=== PATIENT | female | born 1930 | race African-American/Black ===

== ENCOUNTER 2016-08-10 06:19 | Emergency (ER) | payer OTHER ==
[~2016-08-10] VITALS: Ht 170.2 cm; Wt 77.1 kg
--- NOTE | ~2016-08-10 | EKG ---
[address] [address] ELECTROCARDIOGRAM REPORT Name: JLUIS MURGUIAALECIA Rowe [facility] [id number] Admission: 08/10/16 Attend Phys: Discharge: 08/10/16 Date of : [birth year] Report #: [id number] THIS REPORT FOR: //name// [facility] ED Test Date: 2016-08-10 Test Time: 07:23:19 Pat Name: ANJU MURGUIA Department: Room: [facility] Gender: F Front Desk Supervisor: Micaela Alex : 1930 Requested By: Fahad Holly Order Number: [id number] MD: Db Martinez Measurements Intervals [place] Rate: 79 P: 66 HI: 196 QRS: 59 QRSD: 93 T: 30 QT: 382 QTc: 438 Interpretive Statements Sinus rhythm No previous ECG available for comparison Electronically Signed On 08-10-2016 20:23:56 CDT by Db Martinez [email or web address] <ELECTRONICALLY SIGNED> By: Db Martinez MD 08/10/162022 0723 0723 Db Martinez MD /ANEUDY
[2016-08-10 06:21] VITALS: BP 148/74
[2016-08-10 06:41] LABS: POC CA IONIZED 4.6 mg/dL (4.5-5.3); POC CREATININE 0.8 mg/dL (0.6-1.3); POC HEMOGLOBIN 11.6 g/dL (12.0-15.0); POC POTASSIUM 3.6 mmol/L (3.5-5.1)
[2016-08-10 06:45] LABS: ABSOLUTE NEUTROPHILS 3.8 thou/uL (1.4-8.2); BASOPHILS 0.3 % (0.0-2.0); EOSINOPHILS 12.1 % (0.0-3.0); HEMATOCRIT 33.7 % (37.0-47.0); HEMOGLOBIN 10.6 gm/dL (12.0-15.0); LYMPHOCYTES 31.1 % (24.0-44.0); MCH 24.2 pg (26.0-34.0); MCHC 31.3 g/dL (28.0-37.0); MCV 77.1 fL (80.0-100.0); MONOCYTES 8.9 % (1.0-8.0); PLATELET COUNT 224 thou/uL (150-400); POLYS 47.6 % (36.0-66.0); RBC 4.37 mil/uL (4.20-5.00); RDW 17.1 % (10.5-14.5); WBC 7.9 thou/uL (4.0-11.0)
[2016-08-10 06:59] LABS: MANUAL DIFF NO
[2016-08-10 07:02] LABS: ANION GAP 8 mmol/L (7-16); BUN 8 mg/dL (7-18); CALCIUM 8.7 mg/dL (8.5-10.1); CHLORIDE 105 mmol/L (98-107); CO2 29 mmol/L (21-32); CREATININE 0.9 mg/dL (0.6-1.0); GLUCOSE 104 mg/dL (74-106); POTASSIUM 3.7 mmol/L (3.5-5.1); SODIUM 142 mmol/L (136-145)
[2016-08-10 07:04] LABS: APTT 29.2 Seconds (24.5-32.8); INR 1.1; PROTIME 10.9 Seconds (9.3-11.4)
[2016-08-10 07:15] LABS: NT-PRO BRAIN NAT PEPTIDE 441 pg/mL (<300); TROPONIN-I < 0.04 ng/mL (<0.04-0.07)
[2016-08-10] MEDS ORDERED: PROBIOTIC1 EAC1 PO (07:29)
[2016-08-10] MEDS ORDERED: LEVAQUIN 500 M500 M4 PO (07:30)
[2016-08-10] MEDS ORDERED: KEPPRA 500 MG500 M1 PO (07:31)
[2016-08-10] MEDS ORDERED: LEVOTHYROXINE 0.1 MG PO (07:31)
[2016-08-10] MEDS ORDERED: TOPROL XL25 MG PO (07:32)
[2016-08-10] MEDS ORDERED: ZANTAC 150MG T150 MG PO (07:33)
[2016-08-10] MEDS ORDERED: SEROQUEL 25 MG25 M1 PO (07:34)
[2016-08-10 07:52] LABS: URINE BILIRUBIN NEGATIVE (Negative); URINE BLOOD TRACE (Negative); URINE COLOR YELLOW; URINE GLUCOSE-RANDOM* NEGATIVE (Negative); URINE KETONES NEGATIVE (Negative); URINE NITRITE NEGATIVE (Negative); URINE PROTEIN (DIPSTICK) NEGATIVE (Negative); URINE UROBILINOGEN 0.2 E.U./dl (0.2-1.0)
[2016-08-10 12:05] VITALS: BP 143/78
== END 2016-08-10 12:06 ==
LOC: ER 06:19 → EROBS 08:59 → ER 12:06
PROVIDERS: Emergency Medicine
DX: J18.9 Pneumonia, unspecified organism (principal); Z88.5 Allergy status to narcotic agent; Z88.6 Allergy status to analgesic agent; Z88.8 Allergy status to other drugs, medicaments and biological substances; Z88.0 Allergy status to penicillin

== ENCOUNTER 2016-10-21 21:44 | Inpatient (IN) | payer OTHER ==
[~2016-10-21] VITALS: Ht 165.1 cm; Wt 65.6 kg
--- NOTE | ~2016-10-21 | H ---
[facility] [place] [address] HISTORY AND PHYSICAL Name: ANJU MURGUIA Room #: 200-I ADM IN .R.#: [id number] Admission: 10/21/16 Attend Phys: Feliciano Blankenship MD Discharge: Date of : [birth year] Report #: [id number] THIS REPORT FOR: //name// CC: Feliciano Blankenship DATE OF SERVICE: 10/22/2016 CHIEF COMPLAINT: Fever and altered mental status. HISTORY OF PRESENT ILLNESS: The patient is an 86-year-old female who resides at [facility]. She has had multiple episodes of pneumonia or upper respiratory infection in the past several months. For the past several days, she has reportedly had decreased responsiveness. On the day of admission, she was found to have fever and altered mental status. She was brought to [facility] Emergency Room for evaluation where she was found to have tachycardia and findings of left lower lobe infiltrate on her chest x-ray. She was admitted with working diagnosis of pneumonia. 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 ALLERGIES: MORPHINE, MERREM, PENICILLIN, PREDNISONE, CYMBALTA, MOTRIN. MEDICATIONS: Seroquel 25 mg at bedtime, aspirin 81 mg daily, Toprol-XL 25 mg daily, levothyroxine 150 mg daily, ranitidine 150 mg at bedtime, Keppra 250 mg b.i.d., gabapentin 300 mg t.i.d., Colace 100 mg q. 6 hours p.r.n., ferrous sulfate 325 mg daily, baclofen 10 mg t.i.d. and oxycodone 10 mg q. 6 hours. FAMILY HISTORY: Noncontributory. SOCIAL HISTORY: She is and lives at [facility]. She does not use tobacco or alcohol. REVIEW OF SYSTEMS: GENERAL: The patient has chronic back pain, but otherwise has no specific complaints. HEENT: Negative. PULMONARY: She has occasional cough, but denies shortness of breath. CARDIOVASCULAR: Denies chest pain or edema. GENITOURINARY: Negative. MUSCULOSKELETAL: Wheelchair bound, able to transfer, but has chronic back pain with neuropathy. LYMPHATICS: Negative. NEUROLOGIC: Forgetful, but otherwise denies any localized weakness. [address] [address] HISTORY AND PHYSICAL Name: ANJU MURGUIA Room #: 200-I [facility] IN [facility]#: [id number] Admission: 10/21/16 Attend Phys: Feliciano Blankenship MD Discharge: Date of : [birth year] Report #: [id number] PHYSICAL EXAMINATION: GENERAL: The patient is a pleasant, cooperative female complaining that she is hungry, but in no apparent distress. VITAL SIGNS: Reveal temperature 37.4, pulse of 107, respiratory rate 16, blood pressure 165/80. HEENT: Head is normocephalic, atraumatic. Pupils are equal and reactive. Extraocular muscles intact. Oropharynx is moist. NECK: Supple. Trachea midline. LUNGS: Have crackles in the left base. CARDIOVASCULAR: Tachycardic, but regular in rhythm. ABDOMEN: Soft, nontender, nondistended with normoactive bowel sounds. SKIN: Warm and dry. Turgor adequate. LYMPHATICS: No cervical or axillary lymphadenopathy. NEUROLOGIC: She is awake, alert, oriented to self and year, without any focal neurologic deficit or lateralizing signs. MUSCULOSKELETAL: Reveals diminished, but equal and symmetric strength in all extremities. LABORATORY DATA: Include BUN is 17, creatinine 1.1, magnesium 1.6, albumin 2.0. WBC is 15.8, hemoglobin is 11.6, hematocrit is 36.5. Differential includes polys 66%, lymphocytes 21%, monocytes 10%. Urinalysis shows pH of 7, protein 1, blood 3+, leukocyte 1+. Chest x-ray shows left lower lobe pneumonia with possible small effusion. ASSESSMENT: 1. Sepsis with fever, altered mental status and tachycardia due to pneumonia. 2. Severe protein-calorie malnutrition. 3. Hypothyroidism. 4. Chronic back pain due to lumbar spondylosis with radiculopathy. 5. Metabolic encephalopathy due to acute illness. 6. Hypothyroidism. PLAN: Admission to CCU. Continue vancomycin and Levaquin. We will ask speech therapy to evaluate given repeated bouts of respiratory infections in the past several months. Continue nebulized treatments. We will initiate DVT prophylaxis. We will continue home medications. <ELECTRONICALLY SIGNED> By: Feliciano Blankenship MD 10/23/16 1014 1126 1155 Feliciano Blankenship MD /nt
--- NOTE | ~2016-10-21 | EKG ---
[address] [place] [address] ELECTROCARDIOGRAM REPORT Name: ANJU MURGUIA Jae Room #: 200-I ADM IN M.R.#: [id number] Admission: 10/21/16 Attend Phys: Feliciano Blankenship MD Discharge: Date of : [birth year] Report #: [id number] THIS REPORT FOR: //name// [facility] ED Test Date: 2016-10-21 Test Time: 21:53:43 Pat Name: ANJU MURGUIA Department: Room: 200 Gender: F Sky [place]: KYLIE : 1930 Requested By: Wilfredo Simms Order Number: [id number] MD: Masood Williamson Measurements Intervals [place] Rate: 124 P: 55 IA: 154 QRS: 64 QRSD: 90 T: 21 QT: 318 QTc: 457 Interpretive Statements Sinus tachycardia Multiple ventricular premature complexes Compared to ECG 08/10/2016 07:23:19 Ventricular premature complex(es) now present Electronically Signed On 10-22-2016 7:59:44 CDT by Masood Williamson [email or web address] <ELECTRONICALLY SIGNED> By: Masood Williamson MD, [facility] 10/22/16 0759 52 52 Masood Williamson MD, [facility] /EPI
--- NOTE | ~2016-10-21 | HC ---
[facility] [place] [address] CONSULTATION Name: ANJU MURGUIA Room #: 216-P [facility] IN M.R.#: [id number] Admission: 10/21/16 Attend Phys: Feliciano Blankenship MD Discharge: Date of : [birth year] Report #: [id number] THIS REPORT FOR: //name// CC: Feliciano Blankenship DATE OF SERVICE: 10/23/2016 REASON FOR FOLLOWUP: Left lower lobe pneumonia. SUBJECTIVE: Today, the patient is resting comfortably. Appears to be more alert. Denies any significant pain, nausea, vomiting or changes in bowel or bladder habits. PHYSICAL EXAMINATION: VITAL SIGNS: She is afebrile. Stable. HEENT: Pupils equal, round, reactive to light and accommodation. Extraocular muscles intact. NECK: Supple. There is no LAD, no JVD. HEART: She is tachycardic. LUNGS: Crackles at her left base. ABDOMEN: Obese, soft, nontender, nondistended. EXTREMITIES: Demonstrate no cyanosis, clubbing or edema. ASSESSMENT AND PLAN: Left lower lobe pneumonia, currently on vancomycin and Levaquin, pending final cultures. I would continue both for now and reevaluate in the a.m. <ELECTRONICALLY SIGNED> By: Dominick Gutierrez DO 10/25/16 1210 16 2038 Dominick Gutierrez, /nt
--- NOTE | ~2016-10-21 | HC ---
[facility] [place] [address] CONSULTATION Name: ANJU MURGUIA Room #: 200-I ADM IN ..#: [id number] Admission: 10/21/16 Attend Phys: Feliciano Blankenship MD Discharge: Date of : [birth year] Report #: [id number] THIS REPORT FOR: //name// CC: Feliciano Blankenship DATE OF SERVICE: 10/22/2016 INFECTIOUS DISEASE CONSULT REASON FOR CONSULT: Sepsis. HISTORY OF PRESENT ILLNESS: The patient is a pleasant 86-year-old -English female who normally resides at [facility]. She was admitted on 10/21/2016 with decreased mental status. Evidently, she has had multiple admissions of pneumonia in the past and presented today with change in mental status and was noted to have left lower infiltrate on her chest x-ray and an elevated white count. PAST MEDICAL HISTORY: Includes seizure disorder, hypertension, diabetes type 2, GERD, iron deficiency anemia, radiculopathy, neuropathy, hypertension, and constipation. ALLERGIES: PENICILLIN, MORPHINE, CAFFEINE, CYMBALTA, MEPERIDINE and PREDNISONE. SOCIAL HISTORY: She is . Denies any recent alcohol use. Denies drug use. FAMILY HISTORY: Noncontributory. Review of systems is positive for mental status change, shortness of breath, cough, and constipation. PHYSICAL EXAMINATION: VITAL SIGNS: Currently, she is afebrile, temperature 98.1, pulse 97, respirations 18, blood pressure 154/68. She is saturating at 98% on room air. HEENT: Pupils equal, round, reactive to light and accommodation. Extraocular muscles intact. NECK: Supple. There is no LAD, no JVD. HEART: Regular rate and rhythm, although tachycardic. LUNGS: Diminished with crackles on the left side. ABDOMEN: Obese, soft, nontender, nondistended. EXTREMITIES: Without cyanosis, clubbing. She does have +2 edema bilateral. NEUROLOGIC: She is intact. LABORATORY DATA: Current lab includes a white count of 15.8, creatinine of 1.1. [address] [address] CONSULTATION Name: ANJU MURGUIA Room #: 200-I ADM IN ..#: [id number] Admission: 10/21/16 Attend Phys: Feliciano Blankenship MD Discharge: Date of : [birth year] Report #: [id number] CURRENT MEDICATIONS: Include vancomycin and Levaquin. ASSESSMENT AND PLAN: 1. Sepsis, positive for gram-positive cocci in 1 bottle. 2. Left lower lobe pneumonia. 3. Leukocytosis. Overall, she is at high risk for aspiration and MRSA pneumonia. Taking her allergies in a consideration, I would have preferred to use Zosyn, but due to her PENICILLIN allergy and unknown response, I agree with the choice for Levaquin and vancomycin, pending final cultures. So at this point, I would continue Levaquin and continue vancomycin, pending finalization of cultures and monitor closely. <ELECTRONICALLY SIGNED> By: Dominick Gutierrez, 10/23/16 1730 2203 0020 Dominick Gutierrez DO /nt
--- NOTE | ~2016-10-21 | HC ---
[facility] [place] [address] CONSULTATION Name: ANJU MURGUIA Room #: 216-P ADM IN M.R.#: [id number] Admission: 10/21/16 Attend Phys: Feliciano Blankenship MD Discharge: Date of : [birth year] Report #: [id number] THIS REPORT FOR: //name// CC: Feliciano Blankenship DATE OF SERVICE: 10/24/2016 REASON FOR FOLLOWUP: Left lower lobe pneumonia. SUBJECTIVE: Today, the patient is resting comfortably. She has been running some low-grade fevers but denies any fevers at this time. She denies any fevers, chills, nausea, vomiting, headaches or changes in bowel or bladder habits. She has no complaints. OBJECTIVE: VITAL SIGNS: She is currently afebrile. Her vital signs are stable, except she is slightly tachycardic. HEENT: Pupils equal, round and reactive to light and accommodation. Extraocular muscles intact. NECK: Supple. There is no LAD, no JVD. HEART: Regular rate and rhythm. LUNGS: Diminished in the base with crackles noted in the left posterior lobe. ABDOMEN: Obese, soft, nontender, nondistended, hyperactive bowel sounds noted. EXTREMITIES: Show no cyanosis, clubbing or edema. ASSESSMENT AND PLAN: Left lower lobe pneumonia. She is currently on Levaquin and vancomycin. Blood cultures do not appear to be demonstrating any organisms. At this point, I think we can go ahead and stop the vancomycin and just continue with Levaquin alone since her fevers are down and her white count has returned to 8.2. Hopefully, she can ultimately be discharged back home when stable with oral Levaquin to complete a 2-week course. <ELECTRONICALLY SIGNED> By: Dominick Gutierrez DO 10/25/16 1211 20 2149 Dominick Gutierrez DO /nt
--- NOTE | ~2016-10-21 | HC ---
[facility] [place] [address] CONSULTATION Name: ANJU MURGUIA Room #: 216-P [facility] IN M.R.#: [id number] Admission: 10/21/16 Attend Phys: Feliciano Blankenship MD Discharge: Date of : [birth year] Report #: [id number] THIS REPORT FOR: //name// CC: Feliciano Blankenship DATE OF SERVICE: 10/25/2016 REASON FOR CONSULTATION: Pneumonia, persistent. IMPRESSION: 1. Pneumonia, left greater than right. 2. Sepsis. 3. Hypothyroidism. 4. Encephalopathy. 5. Hypothyroidism. PLAN: 1. Antibiotics per . 2. CT PE protocol. 3. EzPAP or IPV whichever, she tolerates and we will add Mucomyst. 5. I agree with speech as this could be aspiration pneumonia. We will continue their precautions. HISTORY OF PRESENT ILLNESS: An 86-year-old female from [place], admitted with shortness of breath, has had recurrent episodes of pneumonia. She relates she feels well now and a definite history cannot obtained from her. PAST MEDICAL HISTORY: Per chart and discussion with nurse: 1. 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 2. Seizure disorder. 3. Hypertension. 4. Constipation. 5. GERD. ALLERGIES: To MORPHINE, , PENICILLIN, PREDNISONE, CYMBALTA and MOTRIN. FAMILY HISTORY: Noncontributory. SOCIAL HISTORY: She denies current tobacco or ETOH. REVIEW OF SYSTEMS: Complains of back pain and some cough. No fever or chills. No nausea or vomiting. Question dementia. PHYSICAL EXAMINATION: VITAL SIGNS: T-max 100, pulse 79, respirations 16 and BP 124/81. [facility] [address] [place] [address] CONSULTATION Name: ANJU MURGUIA Room #: 216-P [facility] IN ..#: [id number] Admission: 10/21/16 Attend Phys: Feliciano Blankenship MD Discharge: Date of : [birth year] Report #: [id number] EYES: Negative icterus. NECK: Trachea midline. LUNGS: Showed coarse breath sounds, left greater than right. HEART: Regular. ABDOMEN: Bowel sounds present. EXTREMITIES: Showed no calf tenderness, moved all extremities. She felt she recognized me. LABORATORY DATA: A pH 7.479, pCO2 of 33 and pO2 of 54 on room air. Swallow showed penetration with thin liquid. We will follow closely with you. By: 1505 1845 Jhonny Garcia MD /nt
[~2016-10-21 21:44] MED LIST: KEPPRA 500 MG500 M1 PO; LEVAQUIN 500 M500 M4 PO; LEVOTHYROXINE 0.1 MG PO; PROBIOTIC1 EAC1 PO; SEROQUEL 25 MG25 M1 PO; TOPROL XL25 MG PO; ZANTAC 150MG T150 MG PO
[2016-10-21 21:45] VITALS: BP 151/55
[2016-10-21 22:09] LABS: HEMATOCRIT 36.5 % (37.0-47.0); HEMOGLOBIN 11.6 gm/dL (12.0-15.0); MANUAL DIFF NO; MCV 70.4 fL (80.0-100.0); RBC 5.18 mil/uL (4.20-5.00); WBC 15.8 thou/uL (4.0-11.0)
[2016-10-21 22:10] LABS: ABSOLUTE NEUTROPHILS 10.5 thou/uL (1.4-8.2); BASOPHILS 1.2 % (0.0-2.0); EOSINOPHILS 1.3 % (0.0-3.0); LYMPHOCYTES 20.9 % (24.0-44.0); MCH 22.3 pg (26.0-34.0); MCHC 31.7 % (28.0-37.0); PLATELET COUNT 191 thou/uL (150-400); POLYS 66.6 % (36.0-66.0); RDW 17.1 % (10.5-14.5)
[2016-10-21 22:30] LABS: ANION GAP 10 mmol/L (7-16); BUN 17 mg/dL (7-18); CALCIUM 8.7 mg/dL (8.5-10.1); CHLORIDE 104 mmol/L (98-107); CO2 27 mmol/L (21-32); CREATININE 1.1 mg/dL (0.6-1.0); GLUCOSE 140 mg/dL (74-106); POTASSIUM 3.9 mmol/L (3.5-5.1); SGOT 3 U/L (15-37); SODIUM 141 mmol/L (136-145); TOTAL BILIRUBIN 0.9 mg/dL (<0.1-1.0)
[2016-10-21 22:31] LABS: ALKALINE PHOSPHATASE 99 U/L (46-116); MAGNESIUM 1.6 mg/dL (1.8-2.4); SGPT 8 U/L (30-65); TOTAL PROTEIN 6.6 g/dL (6.4-8.2); TROPONIN-I < 0.04 ng/mL (<0.04-0.07)
[2016-10-21 22:42] LABS: URINE BILIRUBIN NEGATIVE (Negative); URINE BLOOD 3+ (Negative); URINE COLOR YELLOW; URINE GLUCOSE-RANDOM* NEGATIVE (Negative); URINE KETONES NEGATIVE (Negative); URINE LEUKOCYTES-REFLEX 1+ (Negative); URINE PROTEIN (DIPSTICK) 1+ (Negative); URINE SPECIFIC GRAVITY 1.015 (1.003-1.035)
[2016-10-21 22:50] LABS: SQUAMOUS 0-3 Few /LPF (0-3); URINE RBC 3-10 Few /HPF (0-2); URINE WBC-REFLEX 0-5 Rare /HPF (0-5)
[2016-10-21 23:34] VITALS: BP 134/55
[2016-10-22 00:10] VITALS: BP 136/75
[2016-10-22 02:56] LABS: ANISOCYTOSIS 1+; HYPOCHROMASIA SLIGHT; MICROCYTES 1+
[2016-10-22 03:59] VITALS: BP 126/57
[2016-10-22 07:33] VITALS: BP 165/80
[2016-10-22 11:11] VITALS: BP 164/80
[2016-10-22 16:29] VITALS: BP 153/68
[2016-10-22 19:19] VITALS: BP 154/68
[2016-10-23 00:40] VITALS: BP 150/78
[2016-10-23 02:50] VITALS: BP 147/69
[2016-10-23 07:10] VITALS: BP 150/88
[2016-10-23 11:35] VITALS: BP 145/71
[2016-10-23 15:40] VITALS: BP 144/91
[2016-10-23 19:18] VITALS: BP 153/71
[2016-10-24 03:00] VITALS: BP 143/76
[2016-10-24 04:14] LABS: HEMATOCRIT 33.8 % (37.0-47.0); HEMOGLOBIN 10.5 gm/dL (12.0-15.0); MCH 22.1 pg (26.0-34.0); MCHC 31.2 g/dL (28.0-37.0); MCV 70.7 fL (80.0-100.0); RBC 4.78 mil/uL (4.20-5.00); RDW 16.8 % (10.5-14.5); WBC 8.2 thou/uL (4.0-11.0)
[2016-10-24 04:31] LABS: CALCIUM 8.4 mg/dL (8.5-10.1); CREATININE 0.8 mg/dL (0.6-1.0); POTASSIUM 3.2 mmol/L (3.5-5.1)
[2016-10-24 08:29] LABS: ABG SAMPLE TYPE ARTERIAL; LACTATE 1.18 mmol/L (0.5-2.0); O2(CT) 15.5 mL/dL (15.0-23.0); O2Hb 87.4 % (92.0-98.0); PCO2 33.1 mmHg (35.0-45.0); STICK SITE L.RADIAL; pH 7.479 (7.360-7.450); sO2 90.5 % (92.0-98.0); tCO2 25.1 mmol/L (24.0-30.0)
[2016-10-24 09:00] VITALS: BP 121/61
[2016-10-24 11:40] VITALS: BP 103/55
[2016-10-24 15:25] VITALS: BP 131/51
[2016-10-24 19:45] VITALS: BP 148/78
[2016-10-25 04:57] VITALS: BP 110/53
[2016-10-25 07:13] VITALS: BP 136/74
[2016-10-25 10:56] VITALS: BP 124/81
[2016-10-25 15:50] VITALS: BP 145/80
[2016-10-25 20:04] VITALS: BP 109/73
[2016-10-26 03:47] LABS: HEMATOCRIT 33.2 % (37.0-47.0); HEMOGLOBIN 10.6 gm/dL (12.0-15.0); MCH 22.3 pg (26.0-34.0); MCHC 31.8 g/dL (28.0-37.0); RBC 4.75 mil/uL (4.20-5.00); RDW 17.3 % (10.5-14.5); WBC 9.4 thou/uL (4.0-11.0)
[2016-10-26 03:53] LABS: CALCIUM 8.4 mg/dL (8.5-10.1); POTASSIUM 3.3 mmol/L (3.5-5.1)
[2016-10-26 07:59] VITALS: BP 133/72
[2016-10-26 11:50] VITALS: BP 122/59
[2016-10-26 16:50] VITALS: BP 134/54
[2016-10-26 19:58] VITALS: BP 129/83
[2016-10-26 23:44] VITALS: BP 112/50
[2016-10-27 03:33] LABS: CALCIUM 8.7 mg/dL (8.5-10.1); POTASSIUM 3.8 mmol/L (3.5-5.1)
[2016-10-27 03:51] VITALS: BP 137/57
[2016-10-27 07:57] VITALS: BP 136/58
[2016-10-27 11:35] VITALS: BP 125/64
[2016-10-27 15:54] VITALS: BP 127/49
[2016-10-27 19:43] VITALS: BP 150/73
[2016-10-28 04:21] LABS: HEMATOCRIT 38.6 % (37.0-47.0); MCH 22.1 pg (26.0-34.0); MCHC 31.2 g/dL (28.0-37.0); MCV 70.8 fL (80.0-100.0); RBC 5.45 mil/uL (4.20-5.00); RDW 17.3 % (10.5-14.5); WBC 7.9 thou/uL (4.0-11.0)
[2016-10-28 04:40] VITALS: BP 137/50
[2016-10-28 07:52] VITALS: BP 145/74
[2016-10-28 11:49] VITALS: BP 107/52
[2016-10-28 16:49] VITALS: BP 134/59
[2016-10-28 21:09] VITALS: BP 128/73
[2016-10-29 04:54] VITALS: BP 149/78
[2016-10-29 07:34] VITALS: BP 133/61
[2016-10-29] MEDS ORDERED: CLARITIN10 MG PO (09:33)
[2016-10-29] MEDS ORDERED: LEVAQUIN 500 M500 M1 PO (09:34)
[2016-10-29] MEDS ORDERED: DUONEB 2.5-0.5 M3 ML INH (09:35)
[2016-10-29] MEDS ORDERED: METOPROLOL SUCC50 MG PO (09:35)
[2016-10-29] MEDS ORDERED: OXYCODONE HCL10 MG PO (09:36)
[2016-10-29] MEDS ORDERED: LEVETIRACETAM250 MG PO (09:37)
[2016-10-29] MEDS ORDERED: NEURONTIN 300300 M1 PO (09:37)
[2016-10-29] MEDS ORDERED: MELATONIN5 M1 PO (09:39)
[2016-10-29] MEDS ORDERED: VANCOMYCIN500 MG/VIA IV (09:40)
[2016-10-29 12:15] VITALS: BP 91/53
[2016-10-29 15:38] VITALS: BP 113/58
== END 2016-10-29 18:00 | DRG 871 ==
LOC: ER 21:44 → 2N 22:57 → EROBS 22:57 → 2N 23:55
PROVIDERS: Emergency Medicine; Internal Medicine
PROC: 05H533Z Insertion of Infusion Device into Right Subclavian Vein, Percutaneous Approach (ICD-10-PCS; principal; 2016-10-29)
DX: A41.9 Sepsis, unspecified organism (principal); E43 Unspecified severe protein-calorie malnutrition; G93.41 Metabolic encephalopathy; J69.0 Pneumonitis due to inhalation of food and vomit; K21.9 Gastro-esophageal reflux disease without esophagitis; E03.9 Hypothyroidism, unspecified; E11.42 Type 2 diabetes mellitus with diabetic polyneuropathy; I10 Essential (primary) hypertension; K59.00 Constipation, unspecified; G40.909 Epilepsy, unspecified, not intractable, without status epilepticus; G89.29 Other chronic pain; M54.9 Dorsalgia, unspecified; M47.26 Other spondylosis with radiculopathy, lumbar region; R13.13 Dysphagia, pharyngeal phase; Z88.0 Allergy status to penicillin; Z88.1 Allergy status to other antibiotic agents; Z88.5 Allergy status to narcotic agent; Z88.8 Allergy status to other drugs, medicaments and biological substances; Z79.899 Other long term (current) drug therapy; Z68.24 Body mass index [BMI] 24.0-24.9, adult
CPT/HCPCS: 10081; 27001